=== PATIENT | female | born 1980 | race Caucasian/White ===

== ENCOUNTER 2018-06-04 18:03 | Emergency (ER) | payer SELFPAY ==
[~2018-06-04] VITALS: Ht 170.2 cm; Wt 93.1 kg
[2018-06-04 18:44] VITALS: BP 142/76; PULSE 94; RESP 20; Ht 170.2 cm; Wt 93.1 kg
[2018-06-05] MEDS ORDERED: NAPR-985 PO (09:06)
== END 2018-06-04 18:54 | disposition left against medical advice (07) ==
LOC: FTE 18:03
DX: Z53.21 Procedure and treatment not carried out due to patient leaving prior to being seen by health care provider (principal)

== ENCOUNTER 2018-06-05 08:37 | Emergency (ER) | payer OTHER ==
[~2018-06-05] VITALS: Ht 170.2 cm; Wt 93.8 kg
[2018-06-05 08:38] VITALS: BP 125/81; PULSE 78; RESP 18; Ht 170.2 cm; Wt 93.8 kg
[2018-06-05] MEDS ORDERED: KETOROLAC 30 MG INJ IM STA (09:04)
[2018-06-05] MEDS ORDERED: NAPR-985 PO (09:06)
--- NOTE | 2018-06-05 09:16 | ERD ---
ER Documentation Chief Complaint Chief Complaint back pain x yesterday post trip/fall at store HPI 37-year-old female with no reported past medical or surgical history who presents with complaint of mid back pain following trip and fall yesterday. States she was at a pharmacy tripped over a esperanza at the entrance. [place] María with pain to the left knee and left billings which have improved. Subsequently the following day developed pain to mid back. She denies any radiation of pain to lower extremities, lower extremity weakness or paresthesias, bowel or urinary incontinence. No medications for relief of her pain symptoms. She otherwise without complaint. Time examination patient able to walk about examination room without incident more than 4 steps. ROS All systems reviewed and are negative except as per history of present illness. Medications Home Meds Active Scripts Naproxen* (Naprosyn*) 500 Mg Tablet, 500 MG PO BID PRN for PAIN AND/OR INFLAMMATION, #30 TAB Prov:SHERLY CHOI PA-C 06/05/18 Allergies Allergies: Coded Allergies: No Known Allergy (Unverified , 06/04/18) FmHx Family History: No diabetes, No coronary disease, No other Physical Exam Vitals Vital Signs Date Temp Pulse Resp B/P (MAP) Pulse Ox O2 O2 Flow FiO2 Time Delivery Rate 06/05/18 93.8 78 18 125/81 100 08:38 (96) Physical Exam Const: No acute distress Head: Atraumatic Eyes: Normal Conjunctiva ENT: Normal External Ears, Nose and Mouth. Neck: Full range of motion. No meningismus. Resp: Clear to auscultation bilaterally Cardio: Regular rate and rhythm, no murmurs Abd: Soft, non tender, non distended. Normal bowel sounds Skin: No petechiae or rashes Back: No midline or flank tenderness, full range of motion, able to take more than 4 steps without abnormal gait or complaints of pain. Negative straight leg test bilaterally Ext: No cyanosis, or edema Neur: Awake and alert Psych: Normal Mood and Affect Results 24 hrs Current Medications Medications Dose Sig/Lino Start Time Status Last (Trade) Ordered Route PRN Stop Time Admin Dose Reason Admin Ketorolac 30 mg ONCE STAT 06/05/18 DC Tromethamine IM 09:04 06/05/18 (Toradol) 09:05 10 mg ONCE ONCE 06/05/18 Dexamethasone IM 09:30 06/05/18 (Decadron) 09:31 Procedures/MDM 37-year-old female who presents with status post fall with complaint of back pain. Low suspicion for acute cord compression or cauda equina at this time, given presentation and symptoms, including epidural abscess or hematoma. Patient has no history of malignancy, active or distant history. Patient has no unexplained weight loss. No recent fevers, rigors, malaise, or recent infection. No history of IVDU or skin-popping. Patient does not have any history concerning for saddle anesthesia/perianal sensory loss or complaining of decreased rectal tone. Patient does not have urinary retention or inability to control urine from overflow. Patient has no tenderness overlying spinous process. Patient has no focal weakness on examination. Given exam and history, low suspicion for cord compression, cauda equina, epidural abscess/hematoma. Distally neurovascularly intact. Query likely musculoskeletal component. Discussed pain control,and follow up with PMD. Cautious return precautions discussed w/ full understanding DISPOSITION PLAN: We discussed follow up with the patient's primary care doctor within 24 to 48 hours. Patient counseled regarding my diagnostic impression and care plan. Prior to discharge all questions answered. Pt agrees with treatment plan and understands strict return precautions. Precautionary instructions provided including instructions to return to the ER if not improving or for any worsening or changing symptoms or concerns. Disclaimer: Inadvertent spelling and grammatical errors are likely due to EHR/dictation software use and do not reflect on the overall quality of patient care. Also, please note that the electronic time recorded on this note does not necessarily reflect the actual time of the patient encounter. Departure Diagnosis: Primary Impression: Back pain Condition: Stable Patient Instructions: Back Pain (Acute Or Chronic) Referrals: [facility] YOU HAVE RECEIVED A MEDICAL SCREENING EXAM AND THE RESULTS INDICATE THAT YOU DO NOT HAVE A CONDITION THAT REQUIRES URGENT TREATMENT IN THE EMERGENCY DEPARTMENT. FURTHER EVALUATION AND TREATMENT OF YOUR CONDITION CAN WAIT UNTIL YOU ARE SEEN IN YOUR DOCTORS OFFICE WITHIN THE NEXT 1-2 DAYS. IT IS YOUR RESPONSIBILITY TO MAKE AN APPOINTMENT FOR FOLOW-UP CARE. IF YOU HAVE A PRIMARY DOCTOR --you should call your primary doctor and schedule an appointment IF YOU DO NOT HAVE A PRIMARY DOCTOR YOU CAN CALL OUR PHYSICIAN REFERRAL HOTLINE AT IF YOU CAN NOT AFFORD TO SEE A PHYSICIAN YOU CAN CHOSE FROM THE FOLLOWING [facility] [address] [facility] [address] [facility] [address] [facility] [address] [facility] [address] [facility]. [facility] [address] Additional Instructions: Call your primary care doctor TOMORROW for an appointment during the next 2-3 days.See the doctor sooner or return here if your condition worsens before your appointment time. SHERLY CHOI PA-C June 05, 2018 09:16
[2018-06-05] MEDS ORDERED: DEXAMETHASONE 10 MG/ML 1 ML INJ IM ONE (09:30)
== END 2018-06-05 09:35 | disposition home or self-care (01) ==
LOC: FTE 08:37
DX: M54.9 Dorsalgia, unspecified (principal)
CPT/HCPCS: 81025; 96372; J1100; J1885; Z7502